=== PATIENT | female | born 1990 | race Caucasian/White ===

== ENCOUNTER 2023-06-10 14:02 | Emergency (ER) | payer OTHER ==
[2023-06-10 14:10] VITALS: BP 149/102
[2023-06-10 14:19] VITALS: BP 133/94
[2023-06-10 15:20] VITALS: BP 134/96
== END 2023-06-10 15:05 | disposition short-term general hospital (02) ==
LOC: ED 14:02
DX: O60.03 Preterm labor without delivery, third trimester (principal); Z3A.31 31 weeks gestation of pregnancy